=== PATIENT | female | born 1955 | race Caucasian/White ===

== ENCOUNTER → 2023-11-24 09:39 | Outpatient (REF) | payer MEDICARE, OTHER, SELFPAY ==
[2023-11-24 11:47] LABS: % Basophils 0.6 % (0-2); % Eosinophils 4.1 % (0-6); % Immature Granulocytes 0.8 % (0-0.5); % Lymphocytes 17.8 % (20.5-51.1); % Monocytes 5.4 % (1.7-9.3); % Neutrophils 71.3 % (42.2-75.2); Absolute Basophils 0.1 10^3/uL (0-0.2); Absolute Eosinophils 0.3 10^3/uL (0-0.7); Absolute Immature Granulocytes 0.1 10^3/uL (0-0.05); Absolute Lymphocytes 1.4 10^3/uL (1.2-3.4); Absolute Monocytes 0.4 10^3/uL (0.1-0.6); Absolute Neutrophils 5.5 10^3/uL (1.4-6.5); Hematocrit 37.9 % (37.0-47.0); Mean Corp Hgb Conc. 34.3 g/dL (33.0-37.0); Mean Corpuscular Hgb 29.9 pg (27.0-31.0); Mean Corpuscular Volume 87.1 fL (81.0-99.0); Mean Platelet Volume 10.7 fL (7.4-10.4); Nucleated Red Blood Cells % 0 %; Platelet Count 285 10^3/uL (130-400); Red Blood Cell Count 4.35 10^6/uL (4.20-5.40); Red Cell Dist. Width 13.5 % (11.5-14.5); White Blood Cell Count 7.8 10^3/uL (4.8-10.8)
[2023-11-24 12:23] LABS: ALT (SGPT) 19 U/L (0-35); AST (SGOT) 24 U/L (14-36); Albumin 3.1 g/dl (3.5-5.0); Alkaline Phosphatase 58 U/L (38-126); Blood Urea Nitrogen 15 mg/dl (7-17); Calcium 8.9 mg/dl (8.4-10.2); Carbon Dioxide 31 mmol/L (22-30); Chloride 102 mmol/L (98-107); Glucose 112 mg/dl (70-99); Potassium 3.6 mmol/L (3.5-5.1); Sodium 140 mmol/L (135-145); Total Bilirubin 0.8 mg/dl (0.2-1.3); Total Protein 5.4 g/dl (6.3-8.2); eGFR 55.07
[2023-11-24 12:39] LABS: Vitamin D, 25-OH*** < 12.8 ng/mL (30-80)
== END ==
LOC: HWLAB 09:39
PROVIDERS: ATTENDING PHYSICIAN Internal Medicine Hematology & Oncology; FAMILY PHYSICIAN Family Medicine
DX: E55.9 Vitamin D deficiency, unspecified (principal); C50.411 Malignant neoplasm of upper-outer quadrant of right female breast
CPT/HCPCS: 36415; 80053; 82306; 85025

== ENCOUNTER → 2024-01-31 08:23 | Outpatient (REF) | payer MEDICARE, OTHER, SELFPAY ==
[2024-01-31 12:31] LABS: % Basophils 0.6 % (0-2); % Eosinophils 4.9 % (0-6); % Immature Granulocytes 0.4 % (0-0.5); % Lymphocytes 20.2 % (20.5-51.1); % Monocytes 7.1 % (1.7-9.3); % Neutrophils 66.8 % (42.2-75.2); Absolute Eosinophils 0.3 10^3/uL (0-0.7); Absolute Lymphocytes 1.4 10^3/uL (1.2-3.4); Absolute Monocytes 0.5 10^3/uL (0.1-0.6); Absolute Neutrophils 4.5 10^3/uL (1.4-6.5); Hematocrit 38.3 % (37.0-47.0); Hemoglobin 12.8 g/dL (12.0-16.0); Mean Corp Hgb Conc. 33.4 g/dL (33.0-37.0); Mean Corpuscular Hgb 29.8 pg (27.0-31.0); Mean Corpuscular Volume 89.1 fL (81.0-99.0); Mean Platelet Volume 10.5 fL (7.4-10.4); Nucleated Red Blood Cells % 0 %; Platelet Count 245 10^3/uL (130-400); Red Cell Dist. Width 13.5 % (11.5-14.5); White Blood Cell Count 6.8 10^3/uL (4.8-10.8)
[2024-01-31 12:54] LABS: ALT (SGPT) 29 U/L (0-35); AST (SGOT) 28 U/L (14-36); Albumin 3.9 g/dl (3.5-5.0); Alkaline Phosphatase 71 U/L (38-126); Blood Urea Nitrogen 26 mg/dl (7-17); Calcium 9.6 mg/dl (8.4-10.2); Carbon Dioxide 23 mmol/L (22-30); Chloride 109 mmol/L (98-107); Glucose 201 mg/dl (70-99); Potassium 4.6 mmol/L (3.5-5.1); Sodium 137 mmol/L (135-145); Total Bilirubin 0.4 mg/dl (0.2-1.3); Total Protein 6.2 g/dl (6.3-8.2); Uric Acid 5.6 mg/dl (2.5-6.2); eGFR 35.13
[2024-01-31 12:55] LABS: Erythrocyte Sed Rate 22 mm/hour (0-20)
[2024-01-31 12:58] LABS: C-Reactive Protein < 5.00 mg/L (0.0-10.00)
== END ==
LOC: HWLAB 08:23
PROVIDERS: ATTENDING PHYSICIAN Internal Medicine Rheumatology; FAMILY PHYSICIAN Family Medicine; OTHER PHYSICIAN Internal Medicine; REFERRING PHYSICIAN Internal Medicine Cardiovascular Disease
DX: M10.9 Gout, unspecified (principal); Z79.899 Other long term (current) drug therapy; G62.9 Polyneuropathy, unspecified
CPT/HCPCS: 36415; 80053; 84550; 85025; 85652; 86140

== ENCOUNTER → 2024-02-23 08:12 | Outpatient (REF) | payer MEDICARE, OTHER, SELFPAY ==
[2024-02-23 11:05] LABS: Glycohemoglobin (HgbA1c) 9.2 % (4.0-5.6)
[2024-02-23 12:37] LABS: ALT (SGPT) 25 U/L (0-35); AST (SGOT) 28 U/L (14-36); Albumin 4.2 g/dl (3.5-5.0); Alkaline Phosphatase 69 U/L (38-126); Blood Urea Nitrogen 28 mg/dl (7-17); Calcium 10.2 mg/dl (8.4-10.2); Carbon Dioxide 23 mmol/L (22-30); Chloride 107 mmol/L (98-107); Free T4 0.92 ng/dl (0.78-2.19); Glucose 135 mg/dl (70-99); HDL Cholesterol 36 mg/dl; Phosphorus 4.3 mg/dl (2.5-4.5); Potassium 4.8 mmol/L (3.5-5.1); Sodium 139 mmol/L (135-145); TSH 3.54 uIU/ml (0.47-4.68); Total Bilirubin 0.6 mg/dl (0.2-1.3); Total Cholesterol 322 mg/dl (50-199); Total Protein 6.5 g/dl (6.3-8.2); eGFR 35.13
[2024-02-23 13:25] LABS: Protein/creatinine Ratio 3.6; Urine Protein 559 mg/dl
[2024-02-23 13:26] LABS: Vitamin D, 25-OH*** 18.6 ng/mL (30-80)
[2024-02-23 14:38] LABS: Microalbumin, Random Urine > 57.0 mg/dl (0.6-1.7)
[2024-02-23 20:35] LABS: LDL Cholesterol, Direct 167 mg/dl
[2024-02-24 12:06] LABS: Thyroid Peroxidase Ab (TPO) <0.3 IU/mL (0.0-9.0)
[2024-02-24 15:11] LABS: Triglyceride 477 mg/dl (10-149)
[2024-02-24 20:58] LABS: Fructosamine 298 umol/L (205-285)
== END ==
LOC: HWLAB 08:12
PROVIDERS: ATTENDING PHYSICIAN Specialist; FAMILY PHYSICIAN Family Medicine; OTHER PHYSICIAN Internal Medicine Cardiovascular Disease; OTHER PHYSICIAN Internal Medicine Rheumatology; REFERRING PHYSICIAN Internal Medicine
DX: E11.21 Type 2 diabetes mellitus with diabetic nephropathy (principal); Z79.4 Long term (current) use of insulin; E55.9 Vitamin D deficiency, unspecified; R80.9 Proteinuria, unspecified; R80.1 Persistent proteinuria, unspecified; R79.89 Other specified abnormal findings of blood chemistry; E78.2 Mixed hyperlipidemia
CPT/HCPCS: 36415; 80053; 80061; 82043; 82306; 82570; 82985; 83036; 83721; 84100; 84156; 84439; 84443; 86376

== ENCOUNTER → 2024-03-02 12:39 | Outpatient (REF) | payer MEDICARE, OTHER, SELFPAY ==
[2024-03-05 02:00] LABS: Phospholipase A2 Receptor, IgG <1:10 (<1:10)
== END ==
LOC: HWLAB 12:39
PROVIDERS: ATTENDING PHYSICIAN Specialist; FAMILY PHYSICIAN Family Medicine
DX: R80.9 Proteinuria, unspecified (principal)
CPT/HCPCS: 36415; 83521; 84155; 84156; 84165; 86255; 86335

== ENCOUNTER 2024-03-22 07:57 | Outpatient (REF) | payer MEDICARE, OTHER, SELFPAY ==
[2024-03-22] VITALS (14 sets, daily range): BP systolic 65–182; BP diastolic 71–97
[2024-03-22 08:28] LABS: % Basophils 0.4 % (0-2); % Eosinophils 3.1 % (0-6); % Immature Granulocytes 0.7 % (0-0.5); % Lymphocytes 19.5 % (20.5-51.1); % Neutrophils 70.3 % (42.2-75.2); Absolute Eosinophils 0.2 10^3/uL (0-0.7); Absolute Immature Granulocytes 0.1 10^3/uL (0-0.05); Absolute Lymphocytes 1.4 10^3/uL (1.2-3.4); Absolute Monocytes 0.4 10^3/uL (0.1-0.6); Absolute Neutrophils 5.2 10^3/uL (1.4-6.5); Hematocrit 35.5 % (37.0-47.0); Hemoglobin 12.6 g/dL (12.0-16.0); Mean Corp Hgb Conc. 35.5 g/dL (33.0-37.0); Mean Corpuscular Hgb 30.6 pg (27.0-31.0); Mean Corpuscular Volume 86.2 fL (81.0-99.0); Nucleated Red Blood Cells % 0 %; Platelet Count 243 10^3/uL (130-400); Red Blood Cell Count 4.12 10^6/uL (4.20-5.40); Red Cell Dist. Width 14.2 % (11.5-14.5); White Blood Cell Count 7.4 10^3/uL (4.8-10.8)
[2024-03-22 08:29] LABS: INR 0.94; PT 12.6 Sec (11.4-14.6)
[2024-03-22 08:33] LABS: Blood Urea Nitrogen 25 mg/dl (7-17); Carbon Dioxide 22 mmol/L (22-30); Chloride 109 mmol/L (98-107); Glucose 176 mg/dl (70-99); Potassium 4.8 mmol/L (3.5-5.1); Sodium 142 mmol/L (135-145); eGFR 41.24
[2024-03-22 12:51] LABS: Glucose - Point of Care 137 mg/dl (70-99)
[2024-03-22 15:08] LABS: Hematocrit 35.8 % (37.0-47.0); Hemoglobin 12.3 g/dL (12.0-16.0)
[2024-03-22] MEDS: APRESOLINE 5 MG IV (15:57)
== END 2024-03-22 17:00 | disposition home or self-care (01) ==
LOC: RADI 07:57
PROVIDERS: Radiology Vascular & Interventional Radiology; ATTENDING PHYSICIAN Specialist
DX: E11.22 Type 2 diabetes mellitus with diabetic chronic kidney disease (principal); R80.9 Proteinuria, unspecified; N18.32 Chronic kidney disease, stage 3b; I12.9 Hypertensive chronic kidney disease with stage 1 through stage 4 chronic kidney disease, or unspecified chronic kidney disease; D68.8 Other specified coagulation defects
CPT/HCPCS: 36415; 50200; 76942; 80048; 82962; 85014; 85018; 85025; 85610; 99152; 99153

== ENCOUNTER → 2024-04-26 10:11 | Outpatient (REF) | payer MEDICARE, OTHER, SELFPAY ==
[2024-04-26 11:22] LABS: Blood Urea Nitrogen 53 mg/dl (7-17); Calcium 9.8 mg/dl (8.4-10.2); Carbon Dioxide 22 mmol/L (22-30); Chloride 106 mmol/L (98-107); Glucose 177 mg/dl (70-99); Potassium 5.6 mmol/L (3.5-5.1); Sodium 140 mmol/L (135-145); eGFR 22.73
== END ==
LOC: REG 10:11
PROVIDERS: ATTENDING PHYSICIAN Specialist; FAMILY PHYSICIAN Family Medicine
DX: R80.9 Proteinuria, unspecified (principal); I10 Essential (primary) hypertension; R80.1 Persistent proteinuria, unspecified; E78.2 Mixed hyperlipidemia; R79.89 Other specified abnormal findings of blood chemistry
CPT/HCPCS: 36415; 80048

== ENCOUNTER → 2024-05-02 11:39 | Outpatient (REF) | payer MEDICARE, OTHER, SELFPAY ==
[2024-05-02 12:52] LABS: % Basophils 0.4 % (0-2); % Eosinophils 4.7 % (0-6); % Immature Granulocytes 0.5 % (0-0.5); % Lymphocytes 17.7 % (20.5-51.1); % Monocytes 5.5 % (1.7-9.3); % Neutrophils 71.2 % (42.2-75.2); Absolute Eosinophils 0.4 10^3/uL (0-0.7); Absolute Lymphocytes 1.4 10^3/uL (1.2-3.4); Absolute Monocytes 0.4 10^3/uL (0.1-0.6); Absolute Neutrophils 5.4 10^3/uL (1.4-6.5); Hematocrit 35.9 % (37.0-47.0); Hemoglobin 12.5 g/dL (12.0-16.0); Mean Corp Hgb Conc. 34.8 g/dL (33.0-37.0); Mean Corpuscular Hgb 31.6 pg (27.0-31.0); Mean Corpuscular Volume 90.7 fL (81.0-99.0); Mean Platelet Volume 10.4 fL (7.4-10.4); Nucleated Red Blood Cells % 0 %; Platelet Count 305 10^3/uL (130-400); Red Blood Cell Count 3.96 10^6/uL (4.20-5.40); Red Cell Dist. Width 13.8 % (11.5-14.5); White Blood Cell Count 7.6 10^3/uL (4.8-10.8)
[2024-05-02 13:25] LABS: ALT (SGPT) 30 U/L (0-35); AST (SGOT) 31 U/L (14-36); Albumin 4.5 g/dl (3.5-5.0); Alkaline Phosphatase 66 U/L (38-126); Blood Urea Nitrogen 31 mg/dl (7-17); C-Reactive Protein < 5.00 mg/L (0.0-10.00); Calcium 10.1 mg/dl (8.4-10.2); Carbon Dioxide 23 mmol/L (22-30); Chloride 109 mmol/L (98-107); Glucose 113 mg/dl (70-99); Potassium 5.1 mmol/L (3.5-5.1); Sodium 141 mmol/L (135-145); Total Bilirubin 0.5 mg/dl (0.2-1.3); Total Protein 6.6 g/dl (6.3-8.2); Uric Acid 4.4 mg/dl (2.5-6.2); eGFR 37.96
[2024-05-02 13:58] LABS: TSH Reflex To Free T4 3.74 uIU/ml (0.47-4.68)
[2024-05-02 15:08] LABS: Erythrocyte Sed Rate 28 mm/hour (0-20)
== END ==
LOC: REG 11:39
PROVIDERS: ATTENDING PHYSICIAN Internal Medicine Rheumatology; FAMILY PHYSICIAN Family Medicine; REFERRING PHYSICIAN Specialist
DX: R53.83 Other fatigue (principal); M10.9 Gout, unspecified; R80.1 Persistent proteinuria, unspecified; R79.89 Other specified abnormal findings of blood chemistry
CPT/HCPCS: 36415; 80053; 84443; 84550; 85025; 85652; 86140

== ENCOUNTER → 2024-06-05 11:33 | Outpatient (REF) | payer MEDICARE, OTHER, SELFPAY ==
[2024-06-05 15:16] LABS: Blood Urea Nitrogen 21 mg/dl (7-17); Calcium 9.7 mg/dl (8.4-10.2); Carbon Dioxide 22 mmol/L (22-30); Chloride 109 mmol/L (98-107); Glucose 143 mg/dl (70-99); Potassium 4.8 mmol/L (3.5-5.1); Sodium 138 mmol/L (135-145); eGFR 41.24
[2024-06-05 15:46] LABS: Protein/creatinine Ratio 4.4; Urine Protein 486 mg/dl
== END ==
LOC: HWLAB 11:33
PROVIDERS: ATTENDING PHYSICIAN Specialist; FAMILY PHYSICIAN Family Medicine
DX: N18.32 Chronic kidney disease, stage 3b (principal)
CPT/HCPCS: 36415; 80048; 82570; 84156

== ENCOUNTER → 2024-07-06 11:53 | Outpatient (REF) | payer MEDICARE, OTHER, SELFPAY | LOC: HWWDC 11:53 | PROVIDERS: ATTENDING PHYSICIAN Obstetrics & Gynecology; FAMILY PHYSICIAN Family Medicine; REFERRING PHYSICIAN Family Medicine Geriatric Medicine | DX: Z12.31 Encounter for screening mammogram for malignant neoplasm of breast (principal) | CPT/HCPCS: 77063; 77067 ==

== ENCOUNTER → 2024-08-21 12:49 | Outpatient (REF) | payer MEDICARE, OTHER, SELFPAY ==
[2024-08-21 16:48] LABS: % Basophils 0.5 % (0-2); % Eosinophils 4.1 % (0-6); % Immature Granulocytes 0.4 % (0-0.5); % Lymphocytes 18.4 % (20.5-51.1); % Monocytes 8.3 % (1.7-9.3); % Neutrophils 68.3 % (42.2-75.2); Absolute Eosinophils 0.3 10^3/uL (0-0.7); Absolute Lymphocytes 1.4 10^3/uL (1.2-3.4); Absolute Monocytes 0.6 10^3/uL (0.1-0.6); Absolute Neutrophils 5.1 10^3/uL (1.4-6.5); Hematocrit 37.5 % (37.0-47.0); Hemoglobin 12.9 g/dL (12.0-16.0); Mean Corp Hgb Conc. 34.4 g/dL (33.0-37.0); Mean Corpuscular Volume 87.2 fL (81.0-99.0); Nucleated Red Blood Cells % 0 %; Platelet Count 255 10^3/uL (130-400); Red Cell Dist. Width 13.5 % (11.5-14.5); White Blood Cell Count 7.5 10^3/uL (4.8-10.8)
[2024-08-21 16:52] LABS: ALT (SGPT) 30 U/L (0-35); AST (SGOT) 29 U/L (14-36); Albumin 4.2 g/dl (3.5-5.0); Alkaline Phosphatase 60 U/L (38-126); Blood Urea Nitrogen 25 mg/dl (7-17); Carbon Dioxide 25 mmol/L (22-30); Chloride 108 mmol/L (98-107); Glucose 168 mg/dl (70-99); HDL Cholesterol 31 mg/dl; Sodium 145 mmol/L (135-145); Total Bilirubin 0.5 mg/dl (0.2-1.3); Total Cholesterol 247 mg/dl (50-199); Total Protein 6.4 g/dl (6.3-8.2); eGFR 37.72
[2024-08-21 16:53] LABS: LDL Cholesterol, Calculated 117 mg/dl; Triglyceride 497 mg/dl (10-149); Uric Acid 5.2 mg/dl (2.5-6.2); Very Low Density Lipoprotein 99 mg/dl (0-30)
[2024-08-21 17:03] LABS: LDL Cholesterol, Direct 117 mg/dl; Vitamin D, 25-OH*** 31.6 ng/mL (30-80)
[2024-08-21 17:17] LABS: TSH 3.62 uIU/ml (0.47-4.68)
[2024-08-21 17:38] LABS: Microalbumin, Random Urine > 57.0 mg/dl (0.6-1.7)
[2024-08-22 08:41] LABS: Glycohemoglobin (HgbA1c) 8.6 % (4.0-5.6)
== END ==
LOC: HWLAB 12:49
PROVIDERS: ATTENDING PHYSICIAN Internal Medicine; FAMILY PHYSICIAN Family Medicine; OTHER PHYSICIAN Internal Medicine Rheumatology; REFERRING PHYSICIAN Internal Medicine Cardiovascular Disease
DX: E55.9 Vitamin D deficiency, unspecified (principal); E11.21 Type 2 diabetes mellitus with diabetic nephropathy; Z79.4 Long term (current) use of insulin; E78.2 Mixed hyperlipidemia; M10.9 Gout, unspecified
CPT/HCPCS: 36415; 80053; 80061; 82043; 82306; 82570; 82985; 83036; 83721; 84443; 84550; 85025

== ENCOUNTER → 2024-10-04 07:48 | Outpatient (REF) | payer MEDICARE, OTHER, SELFPAY ==
[2024-10-04 10:26] LABS: Blood Urea Nitrogen 27 mg/dl (7-17); Calcium 9.4 mg/dl (8.4-10.2); Carbon Dioxide 28 mmol/L (22-30); Chloride 103 mmol/L (98-107); Glucose 134 mg/dl (70-99); HDL Cholesterol 33 mg/dl; Potassium 4.2 mmol/L (3.5-5.1); Sodium 141 mmol/L (135-145); Total Cholesterol 271 mg/dl (50-199); eGFR 37.72
[2024-10-04 10:28] LABS: Triglyceride 476 mg/dl (10-149)
[2024-10-04 10:37] LABS: LDL Cholesterol, Direct 116 mg/dl
[2024-10-04 10:40] LABS: Protein/creatinine Ratio 3.6; Urine Protein 305 mg/dl
[2024-10-04 11:06] LABS: Glycohemoglobin (HgbA1c) 8.2 % (4.0-5.6)
== END ==
LOC: HWLAB 07:48
PROVIDERS: ATTENDING PHYSICIAN Internal Medicine Endocrinology, Diabetes & Metabolism; FAMILY PHYSICIAN Family Medicine; OTHER PHYSICIAN Internal Medicine Cardiovascular Disease; REFERRING PHYSICIAN Specialist
DX: E11.21 Type 2 diabetes mellitus with diabetic nephropathy (principal); Z79.4 Long term (current) use of insulin; N18.32 Chronic kidney disease, stage 3b; E78.2 Mixed hyperlipidemia
CPT/HCPCS: 36415; 80048; 80061; 82570; 83036; 83721; 84156

== ENCOUNTER → 2024-10-16 14:48 | Outpatient (REF) | payer MEDICARE, OTHER, SELFPAY | LOC: DHSLP 14:48 | PROVIDERS: ATTENDING PHYSICIAN Internal Medicine Cardiovascular Disease; FAMILY PHYSICIAN Family Medicine | DX: G47.33 Obstructive sleep apnea (adult) (pediatric) (principal) | CPT/HCPCS: 95806 ==

== ENCOUNTER → 2024-10-19 10:21 | Outpatient (REF) | payer MEDICARE, OTHER, SELFPAY | LOC: RAD 10:21 | PROVIDERS: ATTENDING PHYSICIAN Family Medicine; OTHER PHYSICIAN Internal Medicine Rheumatology | DX: M54.16 Radiculopathy, lumbar region (principal) | CPT/HCPCS: 72110; 73502 ==

== ENCOUNTER → 2024-11-20 10:14 | Outpatient (REF) | payer MEDICARE, OTHER, SELFPAY ==
[2024-11-20 11:11] LABS: % Basophils 0.8 % (0-2); % Eosinophils 4.4 % (0-6); % Immature Granulocytes 0.3 % (0-0.5); % Lymphocytes 20.2 % (20.5-51.1); % Monocytes 6.3 % (1.7-9.3); Absolute Basophils 0.1 10^3/uL (0-0.2); Absolute Eosinophils 0.3 10^3/uL (0-0.7); Absolute Lymphocytes 1.3 10^3/uL (1.2-3.4); Absolute Monocytes 0.4 10^3/uL (0.1-0.6); Absolute Neutrophils 4.5 10^3/uL (1.4-6.5); Hematocrit 42.4 % (37.0-47.0); Hemoglobin 14.4 g/dL (12.0-16.0); Mean Corpuscular Hgb 30.4 pg (27.0-31.0); Mean Corpuscular Volume 89.6 fL (81.0-99.0); Mean Platelet Volume 11.1 fL (7.4-10.4); Nucleated Red Blood Cells % 0 %; Platelet Count 265 10^3/uL (130-400); Red Blood Cell Count 4.73 10^6/uL (4.20-5.40); Red Cell Dist. Width 13.1 % (11.5-14.5); White Blood Cell Count 6.6 10^3/uL (4.8-10.8)
[2024-11-20 11:27] LABS: ALT (SGPT) 38 U/L (0-35); AST (SGOT) 35 U/L (14-36); Albumin 4.3 g/dl (3.5-5.0); Alkaline Phosphatase 75 U/L (38-126); Blood Urea Nitrogen 32 mg/dl (7-17); Calcium 9.6 mg/dl (8.4-10.2); Carbon Dioxide 30 mmol/L (22-30); Chloride 99 mmol/L (98-107); Glucose 131 mg/dl (70-99); HDL Cholesterol 36 mg/dl; Potassium 4.2 mmol/L (3.5-5.1); Sodium 138 mmol/L (135-145); Total Bilirubin 0.7 mg/dl (0.2-1.3); Total Cholesterol 324 mg/dl (50-199); Total Protein 6.7 g/dl (6.3-8.2); Uric Acid 6.8 mg/dl (2.5-6.2); eGFR 37.72
[2024-11-20 11:42] LABS: Vitamin D, 25-OH*** 19.9 ng/mL (30-80)
[2024-11-20 12:06] LABS: Glycohemoglobin (HgbA1c) 10.1 % (4.0-5.6)
[2024-11-20 13:48] LABS: Triglyceride > 400 mg/dl (10-149)
[2024-11-20 14:15] LABS: LDL Cholesterol, Direct 130 mg/dl
[2024-11-21 19:20] LABS: Fructosamine 373 umol/L (205-285)
== END ==
LOC: REG 10:14
PROVIDERS: ATTENDING PHYSICIAN Internal Medicine Endocrinology, Diabetes & Metabolism; FAMILY PHYSICIAN Family Medicine; OTHER PHYSICIAN Internal Medicine Hematology & Oncology; OTHER PHYSICIAN Internal Medicine Rheumatology
DX: E78.2 Mixed hyperlipidemia (principal); E11.21 Type 2 diabetes mellitus with diabetic nephropathy; Z79.4 Long term (current) use of insulin; E55.9 Vitamin D deficiency, unspecified; M10.9 Gout, unspecified; C50.411 Malignant neoplasm of upper-outer quadrant of right female breast
CPT/HCPCS: 36415; 80053; 80061; 82306; 82985; 83036; 83721; 84550; 85025

== ENCOUNTER → 2024-12-20 09:29 | Outpatient (REF) | payer MEDICARE, OTHER, SELFPAY | LOC: HWRAD 09:29 | PROVIDERS: ATTENDING PHYSICIAN Internal Medicine Hematology & Oncology; FAMILY PHYSICIAN Family Medicine; REFERRING PHYSICIAN Obstetrics & Gynecology | DX: Z78.0 Asymptomatic menopausal state (principal) | CPT/HCPCS: 77080 ==

== ENCOUNTER → 2024-12-26 10:52 | Outpatient (REF) | payer MEDICARE, OTHER, SELFPAY | LOC: MRI 3T 10:52 | PROVIDERS: ATTENDING PHYSICIAN Family Medicine Geriatric Medicine; FAMILY PHYSICIAN Family Medicine | DX: Z85.3 Personal history of malignant neoplasm of breast (principal); Z12.39 Encounter for other screening for malignant neoplasm of breast; Z15.01 Genetic susceptibility to malignant neoplasm of breast; Z15.09 Genetic susceptibility to other malignant neoplasm | CPT/HCPCS: 77049; A9585 ==

== ENCOUNTER → 2025-01-09 07:20 | Outpatient (REF) | payer MEDICARE, OTHER, SELFPAY ==
[2025-01-09 09:33] LABS: Hematocrit 40.4 % (37.0-47.0)
[2025-01-09 10:26] LABS: Albumin 4.4 g/dl (3.5-5.0); Blood Urea Nitrogen 24 mg/dl (7-17); Calcium 9.8 mg/dl (8.4-10.2); Carbon Dioxide 26 mmol/L (22-30); Chloride 103 mmol/L (98-107); Glucose 150 mg/dl (70-99); Phosphorus 3.6 mg/dl (2.5-4.5); Sodium 140 mmol/L (135-145); eGFR 40.98
[2025-01-09 10:28] LABS: Protein/creatinine Ratio 5.2; Urine Protein 517 mg/dl
[2025-01-09 10:37] LABS: Intact PTH 104.5 pg/ml (13.6-85.8)
== END ==
LOC: HWLAB 07:20
PROVIDERS: ATTENDING PHYSICIAN Specialist; FAMILY PHYSICIAN Family Medicine; REFERRING PHYSICIAN Internal Medicine
DX: I10 Essential (primary) hypertension (principal); R80.9 Proteinuria, unspecified; R80.1 Persistent proteinuria, unspecified; E87.5 Hyperkalemia
CPT/HCPCS: 36415; 80069; 82570; 83970; 84156; 85014; 85018

== ENCOUNTER → 2025-02-22 11:49 | Outpatient (REF) | payer MEDICARE, OTHER, SELFPAY ==
[2025-02-22 12:22] LABS: % Basophils 0.6 % (0-2); % Immature Granulocytes 0.3 % (0-0.5); % Lymphocytes 20.5 % (20.5-51.1); % Monocytes 6.6 % (1.7-9.3); Absolute Eosinophils 0.4 10^3/uL (0-0.7); Absolute Lymphocytes 1.5 10^3/uL (1.2-3.4); Absolute Monocytes 0.5 10^3/uL (0.1-0.6); Absolute Neutrophils 4.8 10^3/uL (1.4-6.5); Hematocrit 40.8 % (37.0-47.0); Hemoglobin 14.2 g/dL (12.0-16.0); Mean Corp Hgb Conc. 34.8 g/dL (33.0-37.0); Mean Corpuscular Hgb 30.8 pg (27.0-31.0); Mean Corpuscular Volume 88.5 fL (81.0-99.0); Mean Platelet Volume 10.5 fL (7.4-10.4); Nucleated Red Blood Cells % 0 %; Platelet Count 228 10^3/uL (130-400); Red Blood Cell Count 4.61 10^6/uL (4.20-5.40); Red Cell Dist. Width 13.7 % (11.5-14.5); White Blood Cell Count 7.1 10^3/uL (4.8-10.8)
[2025-02-22 13:03] LABS: ALT (SGPT) 32 U/L (0-35); AST (SGOT) 32 U/L (14-36); Albumin 4.3 g/dl (3.5-5.0); Alkaline Phosphatase 63 U/L (38-126); Blood Urea Nitrogen 33 mg/dl (7-17); Calcium 10.2 mg/dl (8.4-10.2); Carbon Dioxide 29 mmol/L (22-30); Chloride 105 mmol/L (98-107); Glucose 109 mg/dl (70-99); HDL Cholesterol 34 mg/dl; LDL Cholesterol, Calculated 203 mg/dl; Potassium 4.5 mmol/L (3.5-5.1); Sodium 144 mmol/L (135-145); Total Bilirubin 0.9 mg/dl (0.2-1.3); Total Cholesterol 301 mg/dl (50-199); Total Protein 6.7 g/dl (6.3-8.2); Triglyceride 322 mg/dl (10-149); Uric Acid 7.1 mg/dl (2.5-6.2); Very Low Density Lipoprotein 64 mg/dl (0-30); eGFR 32.46
[2025-02-22 13:12] LABS: Vitamin D, 25-OH*** 41.6 ng/mL (30-80)
[2025-02-22 13:19] LABS: Glycohemoglobin (HgbA1c) 8.3 % (4.0-5.6)
== END ==
LOC: REG 11:49
PROVIDERS: ATTENDING PHYSICIAN Internal Medicine Endocrinology, Diabetes & Metabolism; FAMILY PHYSICIAN Family Medicine; REFERRING PHYSICIAN Internal Medicine Rheumatology
DX: M10.9 Gout, unspecified (principal); E11.21 Type 2 diabetes mellitus with diabetic nephropathy; Z79.4 Long term (current) use of insulin; E55.9 Vitamin D deficiency, unspecified
CPT/HCPCS: 36415; 80053; 80061; 82306; 83036; 84550; 85025

== ENCOUNTER → 2025-05-29 11:55 | Outpatient (REF) | payer MEDICARE, OTHER, SELFPAY ==
[2025-05-29 12:42] LABS: Hematocrit 40.0 % (37.0-47.0); Hemoglobin 13.9 g/dL (12.0-16.0); Mean Corp Hgb Conc. 34.8 g/dL (33.0-37.0); Mean Corpuscular Volume 88.1 fL (81.0-99.0); Nucleated Red Blood Cells % 0 %; Platelet Count 253 10^3/uL (130-400); Red Cell Dist. Width 13.3 % (11.5-14.5)
[2025-05-29 13:49] LABS: Microalb - Urine Creatinine 148.700 mg/dl
[2025-05-29 14:13] LABS: Glycohemoglobin (HgbA1c) 8.3 % (4.0-5.6)
[2025-05-29 15:23] LABS: Microalbumin, Random Urine > 57.0 mg/dl (0.6-1.7)
[2025-05-29 16:01] LABS: Vitamin D, 25-OH*** 39.3 ng/mL (30-80)
[2025-05-29 16:15] LABS: TSH 3.19 uIU/ml (0.47-4.68)
[2025-05-29 16:26] LABS: ALT (SGPT) 36 U/L (0-35); AST (SGOT) 31 U/L (14-36); Albumin 4.3 g/dl (3.5-5.0); Alkaline Phosphatase 61 U/L (38-126); Blood Urea Nitrogen 24 mg/dl (7-17); Calcium 9.9 mg/dl (8.4-10.2); Carbon Dioxide 27 mmol/L (22-30); Chloride 108 mmol/L (98-107); Glucose 111 mg/dl (70-99); Potassium 4.1 mmol/L (3.5-5.1); Sodium 141 mmol/L (135-145); Total Protein 6.7 g/dl (6.3-8.2); Uric Acid 6.2 mg/dl (2.5-6.2); Very Low Density Lipoprotein 77 mg/dl (0-30); eGFR 34.91
[2025-05-29 16:29] LABS: HDL Cholesterol 31 mg/dl; LDL Cholesterol, Calculated 167 mg/dl
== END ==
LOC: REG 11:55
PROVIDERS: ATTENDING PHYSICIAN Internal Medicine Rheumatology; FAMILY PHYSICIAN Family Medicine; OTHER PHYSICIAN Internal Medicine
DX: E11.21 Type 2 diabetes mellitus with diabetic nephropathy (principal); Z79.4 Long term (current) use of insulin; E55.9 Vitamin D deficiency, unspecified; M10.9 Gout, unspecified
CPT/HCPCS: 36415; 80053; 80061; 82043; 82306; 82570; 82985; 83036; 84443; 84550; 85025

== ENCOUNTER → 2025-07-02 11:13 | Outpatient (REF) | payer MEDICARE, OTHER, SELFPAY ==
[2025-07-02 12:55] LABS: Hematocrit 40.9 % (37.0-47.0); Hemoglobin 14.1 g/dL (12.0-16.0); Mean Corp Hgb Conc. 34.5 g/dL (33.0-37.0); Mean Corpuscular Volume 89.3 fL (81.0-99.0); Nucleated Red Blood Cells % 0 %; Platelet Count 252 10^3/uL (130-400); Red Cell Dist. Width 13.6 % (11.5-14.5)
[2025-07-02 12:57] LABS: Urine Character Clear (Clear)
[2025-07-02 13:55] LABS: Albumin 4.3 g/dl (3.5-5.0); Blood Urea Nitrogen 28 mg/dl (7-17); Calcium 9.8 mg/dl (8.4-10.2); Carbon Dioxide 29 mmol/L (22-30); Chloride 105 mmol/L (98-107); Glucose 93 mg/dl (70-99); Potassium 4.4 mmol/L (3.5-5.1); Sodium 141 mmol/L (135-145); eGFR 34.91
[2025-07-02 14:08] LABS: Urine Urothelial Cell 0-2 /LPF (FEW)
[2025-07-02 14:10] LABS: Urine Squamous Cell 0-2 /LPF (Few)
== END ==
LOC: REG 11:13
PROVIDERS: ATTENDING PHYSICIAN Specialist; FAMILY PHYSICIAN Family Medicine
DX: I10 Essential (primary) hypertension (principal); R80.1 Persistent proteinuria, unspecified
CPT/HCPCS: 36415; 80069; 81003; 81015; 82570; 83970; 84156; 85025

== ENCOUNTER → 2025-07-09 10:59 | Outpatient (REF) | payer MEDICARE, OTHER, SELFPAY | LOC: HWWDC 10:59 | PROVIDERS: ATTENDING PHYSICIAN Family Medicine Geriatric Medicine; FAMILY PHYSICIAN Family Medicine | DX: Z12.31 Encounter for screening mammogram for malignant neoplasm of breast (principal); Z85.3 Personal history of malignant neoplasm of breast | CPT/HCPCS: 77063; 77067 ==

== ENCOUNTER → 2025-08-28 09:45 | Outpatient (REF) | payer MEDICARE, OTHER, SELFPAY ==
[2025-08-28 11:28] LABS: Microalb - Urine Creatinine 87.500 mg/dl
[2025-08-28 11:34] LABS: ALT (SGPT) 36 U/L (0-35); AST (SGOT) 28 U/L (14-36); Albumin 4.3 g/dl (3.5-5.0); Alkaline Phosphatase 86 U/L (38-126); Blood Urea Nitrogen 31 mg/dl (7-17); Calcium 9.5 mg/dl (8.4-10.2); Carbon Dioxide 32 mmol/L (22-30); Chloride 100 mmol/L (98-107); Glucose 246 mg/dl (70-99); HDL Cholesterol 34 mg/dl; Potassium 4.1 mmol/L (3.5-5.1); Sodium 140 mmol/L (135-145); Total Protein 6.7 g/dl (6.3-8.2); eGFR 34.70
[2025-08-28 11:50] LABS: Vitamin D, 25-OH*** 22.4 ng/mL (30-80)
[2025-08-28 12:03] LABS: Glycohemoglobin (HgbA1c) 8.7 % (4.0-5.9); TSH 2.77 uIU/ml (0.47-4.68)
[2025-08-28 12:05] LABS: LDL Cholesterol, Direct 129 mg/dl
[2025-08-28 12:39] LABS: Microalbumin, Random Urine > 57.0 mg/dl (0.6-1.7)
== END ==
LOC: REG 09:45
PROVIDERS: ATTENDING PHYSICIAN Internal Medicine; FAMILY PHYSICIAN Family Medicine
DX: E11.21 Type 2 diabetes mellitus with diabetic nephropathy (principal); Z79.4 Long term (current) use of insulin; E55.9 Vitamin D deficiency, unspecified
CPT/HCPCS: 36415; 80053; 80061; 82043; 82306; 82570; 82985; 83036; 83721; 84443